=== PATIENT | female | born 1975 | race Caucasian/White ===

== ENCOUNTER 2020-01-19 07:47 | Outpatient (CLI) | payer OTHER, SELFPAY ==
--- NOTE | ~2020-01-19 | MM_ITS ---
EXAMINATION: MM screening [facility] BI w antwon HISTORY: Screening mammogram, family history of breast cancer in her sister. TECHNIQUE: Craniocaudal and mediolateral oblique 3-D tomosynthesis images were obtained and synthetic 2-D images were generated. CAD analysis was submitted and interpreted. COMPARISON: 12/25/2018, 07/05/2017, 11/13/2016, 04/19/2016 BREAST PARENCHYMAL COMPOSITION: The breasts are heterogeneously dense, which may obscure small masses . FINDINGS: There are stable changes of excisional biopsy in the left breast. There is no evidence of s uspicious mass, calcification, or architectural distortion to suggest malignancy in either breast. Th ere has been no suspicious interval change. IMPRESSION: 1. No mammographic evidence of malignancy. 2. Recommend routine screening mammography in one year. BI-RADS Category 2: Benign finding(s). Reviewed, dictated and finalized at location A.
== END 2020-01-19 07:48 | disposition home or self-care (01) ==
LOC: ANHIMG 07:49
PROVIDERS: PCP Family Medicine; Visit Provider Internal Medicine
DX: Z12.31 Encounter for screening mammogram for malignant neoplasm of breast (principal)
CPT/HCPCS: 77063; 77067

== ENCOUNTER 2020-10-04 09:03 | Outpatient (CLI) | payer OTHER, SELFPAY ==
--- NOTE | 2020-10-14 20:46 | WPDHOMESLEEP ---
Sleep Study - Home Unattended Date of Study: 10/04/20 Ordering Provider: Gunnar Zimmer MD Interpreting Provider: Nanette Figueroa MD Home Sleep Study Type: Watch PAT Height: 1.57 m Weight: 58.967 kg Body Mass Index: 23.8 Neck Circumference (inches): 13.25 Little Neck: 11 Reason for Sleep Study waking during the night, difficulty getting back to sleep, Sleep History Kaykay Rosado is a 45 year old female with problems waking up during the night. She avoids looking at the clock so she does not focus on the time. If her is snoring, it is often difficult for her to return to sleep. When this happens, she moves to the couch but then has pain in her hip which keeps her awake. She rolls around trying to get comfortable. This has worsened over the last few years. She has tried melatonin and valerian root without success. She has used a sleep spray on her throat which has not helped. Her sleep quality varies based on the amount of stress she has at work. Some weeks are better than others. She occasionally snores and occasionally it is loud enough that others complain about it. She does not awaken at night with heartburn, belching or coughing. She rarely awakens from sleep feeling short of breath. She occasionally has trouble sleeping with a cold. She does not wake up gasping for breath at night and does not have breathing problems at night observed by others. She occasionally sweats excessively at night. She rarely notices her heart pounding or beating irregularly at night. She occasionally falls asleep during the day, never involuntarily, and never while driving. She does not have loss of muscle tone with strong emotion. 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 She does not have paralysis on waking or falling asleep. She occasionally has vivid dreamlike scenes upon awakening or falling asleep. She does not feel afraid to go to sleep. She rarely has nightmares. She occasionally remembers her dreams. She frequently has racing thoughts. She occasionally feels sad, depressed or anxious. She occasionally has muscular tension and occasionally notices parts of her body jerking. She rarely kicks at night. She occasionally has crawling and aching feelings in her legs. She rarely has any kind of leg pain at night. She occasionally has morning jaw pain. She constantly grinds her teeth during sleep. She frequently is bothered by pain during the day. She rarely is awakened by pain at night. She occasionally wakes up feeling stiff the morning with sore or achy muscles. She constantly wakes up with pain in the neck and spine. She has occasional morning headaches, fatigue, memory problems, concentration difficulties and poor appetite. She has a difficult time making decisions. Normal bedtime is between 10:30 and 11:00 p.m. falling asleep within 30 minutes, typically waking twice at night. Sometimes, she is able to return to sleep in a few minutes. Sometimes, she moves to the couch if her is snoring. She wakes at 5:20 a.m. if she works at 7 am, or she may wake at 7-8:00 a.m. is she works at 10:00 a.m. On the weekends, she stays awake until 11:00 - 11:30, and wakes up as late as 7:00 a.m. or 8:00 a.m.. She works split shifts, sometimes 7:00 a.m. to 5:30 p.m. or 10:00 a.m. until 8:00 p.m.. She does not generally take naps and less she is off work. A short nap is not refreshing. She is usually drowsy in the morning for 1 hour or longer. She feels better in the early afternoon compared other times of day. Habits: she quit tobacco 16 months ago. Caffeine 3-4 servings a day. No alcohol or recreational drugs. [facility] Past Medical History Medical History Acute non-recurrent maxillary sinusitis Chronic depression Encounter for wellness examination in adult Hypersomnia Family History Family Hi
[2020-10-14 20:48] VITALS: BMI 23.8
== END 2020-10-04 09:04 | disposition home or self-care (01) ==
LOC: ANHCSM 09:03
PROVIDERS: PCP Family Medicine; Visit Provider Family Medicine
DX: G47.10 Hypersomnia, unspecified (principal)
CPT/HCPCS: 95800

== ENCOUNTER 2021-01-24 09:54 | Outpatient (CLI) | payer OTHER, SELFPAY ==
--- NOTE | ~2021-01-24 | MM_ITS ---
EXAMINATION: MM screening [facility] BI w antwon HISTORY: Screening TECHNIQUE: Craniocaudal and mediolateral oblique 3-D tomosynthesis images were obtained and synthetic 2-D images were generated. CAD analysis was submitted and interpreted. COMPARISON: Comparison to multiple prior studies sequentially, with oldest reviewed study dated 04/07. BREAST PARENCHYMAL COMPOSITION: The breasts are heterogeneously dense, which may obscure small masses . FINDINGS: There is a developing mass inferiorly in the right breast on MLO view. The left breast is s table without evidence for malignancy. IMPRESSION: 1. Developing right breast mass inferiorly. 2. Additional mammographic views and possible breast ultrasound are recommended. BI-RADS Category 0: Incomplete: Needs additional imaging evaluation. Reviewed, dictated and finalized at location A. IMPRESSION: 1. Developing right breast mass inferiorly. 2. Additional mammographic views and possible breast ultrasound are recommended . BI-RADS Category 0: Incomplete: Needs additional imaging evaluation.
== END 2021-01-24 09:55 | disposition home or self-care (01) ==
LOC: ANHIMG 09:59
PROVIDERS: PCP Family Medicine; Visit Provider Internal Medicine
DX: Z12.31 Encounter for screening mammogram for malignant neoplasm of breast (principal); R92.8 Other abnormal and inconclusive findings on diagnostic imaging of breast
CPT/HCPCS: 77063; 77067

== ENCOUNTER 2022-12-24 08:00 | Outpatient (NON) | payer OTHER, SELFPAY | END 2022-12-24 08:01 | disposition home or self-care (01) | LOC: ANHLAB 12-25 10:38 | PROVIDERS: PCP Family Medicine; Visit Provider Internal Medicine Gastroenterology | DX: Z12.11 Encounter for screening for malignant neoplasm of colon (principal); K63.5 Polyp of colon | CPT/HCPCS: 88305 ==

== ENCOUNTER 2022-12-24 08:23 | Day surgery (SDC) | payer OTHER, SELFPAY ==
[2022-11-01 11:46] VITALS: BMI 22.1
[2022-12-07 14:07] VITALS: BMI 22.6
--- NOTE | 2022-12-24 07:00 | WPDANESEPPF ---
Anes - Initial Pre Proc Eval Procedure: Operation Date: 12/24/22 10:00 Proposed Procedures p Screening Colonoscopy - Nelson Pinto MD Date/Time: 12/24/22 07:00 Surgeon: Nelson Pinto MD Pre Op Diagnosis: Neoplasm Screening Patient Data Age: 47 Gender: F Height: 1.57 m Weight: 56 kg Allergies Allergy/AdvReac Type Severity Reaction Status Date / Time Sulfa (Sulfonamide Allergy Unknown Urticaria Verified 12/24/22 08:41 Antibiotics) Penicillins AdvReac Unknown Abdominal Verified 12/24/22 08:41 Pain Home Medications Medication Instructions Recorded Confirmed Type cholecalciferol (vitamin D3) 25 2,000 unit PO DAILY 02/09/20 12/24/22 History mcg (1,000 unit) capsule albuterol sulfate 90 mcg/actuation 2 inh inhalation Q4H PRN shortness 02/13/22 12/24/22 Rx aerosol inhaler (ProAir HFA) of breath or wheezing #8.5 grams fluticasone propionate 50 1 spray intranasal BID #16 grams 02/13/22 12/24/22 Rx mcg/actuation nasal spray,suspension (Flonase Allergy Relief) montelukast 10 mg tablet 10 mg PO DAILY #30 tabs 02/13/22 12/24/22 Rx multivit with 1 tablet PO DAILY 08/28/22 12/24/22 History gbgeayyj-rbwg-JD-lutein 8 mg iron-400 mcg-300 mcg tablet (Centrum Silver Women) Patient hx anesthesia problems: none Family hx anesthesia problems: none Results Review: All pre-operative results and documents have been reviewed as part of the pre-operative evaluation. [facility] Past Medical History Medical History (Updated 08/28/22 @ 09:35 by Gunnar Zimmer MD) Acute non-recurrent maxillary sinusitis BMI 21.0-21.9, adult BMI 22.0-22.9, adult BMI 23.0-23.9, adult BMI 24.0-24.9, adult Breast cancer screening by mammogram Chronic depression Colon cancer screening Encounter for wellness examination in adult Herpes zoster (~05/20/22) right L3 dermatome Hypersomnia Normal sleep study 10/04/2020 Mild intermittent asthma in adult without complication Weight loss, unintentional (~02/13/22) the patient lost 10 lb between visits Family History Family History Mother Acute myocardial infarction, Onset Age: 51 Father Family history of lung cancer Family history of emphysema Family history of congestive heart failure, Onset Age: 69 Sibling Family history of malignant neoplasm of breast in first degree relative Social History Social History (Updated 08/28/22 @ 09:12 by Carolina Cabello MA) Smoking packs per day: 2 Smoking cigarettes per day: 40.0 Years smoked: 20 Smoking pack-years: 40.00 Smoking status: Heavy tobacco smoker Smoking end date: 07/08/01 Alcohol intake: unknown Substance use: never Substance use type: does not use Lack of Transportation: No Lack of Food: Never True Current Housing: I Have Housing Concerned About Future Housing: No Difficulty Paying Gas/Electric Bills: No Difficulty Paying for Meds: No Currently Unemployed: No Education: High School Diploma/GED Difficulty w/ Childcare or Family Care: No Living arrangements: with family Spiritual care concerns: No Anes - Eval Final PreProcedure Day of Procedure 12/24/22 07:00 Patient weight: normal Heart: regular rate and rhythm Lungs: clear to auscultation and normal air movement Airway: Mallampati scale class II Neurological: alert and oriented Last oral intake: >/= 8 hours ASA classification: II Emergent: no Anesthetic plan: proceed Anesthesia type and monitoring: general GIVS and standard monitoring Results Review: All pre-operative results and documents have been reviewed as part of the pre-operative evaluation. Informed Consent: The patient's anesthetic plan and its attendant risks and benefits were discussed with the patient/family/POA. Questions were solicited and answers provided to the satisfaction of the patient/family/POA.
[2022-12-24 08:49] VITALS: BP 106/76; PULSE 55; RESP 14; TEMP 37; O2SAT 99
[2022-12-24] MEDS: LACTATED RINGERS 1,000 ML 150 ML IV CONT (09:05)
--- NOTE | 2022-12-24 09:42 | PM.HPGS ---
History of Present Illness History of Present Illness Consent: Risks, benefits, and alternatives have been discussed and questions answered. Patient agrees to proceed with procedure. Chief complaint: Neoplasm Screening Narrative: Kaykay Rosado is a 47 year old female here for first screening colonoscopy Review of Systems Constitutional: Constitutional: Denies headache(s) and Denies weakness Eyes: Eyes: Denies blurry vision ENT: Reports Normal hearing present, Denies headache(s) and Denies neck pain Cardiovascular: Cardiovascular: Denies chest pain and Denies dyspnea Respiratory: Respiratory: Denies dyspnea Gastrointestinal: Gastrointestinal: Reports no additional gastrointestinal complaints Genitourinary: Genitourinary: Denies dysuria Musculoskeletal: Musculoskeletal: Denies neck pain Integumentary/Breasts: Skin/Breast: Denies dry skin Neurologic: Reports Normal hearing present, Denies headache(s) and Denies weakness Psychiatric: Psychiatric: Denies anxiety Endocrine: Endocrine: Denies change in body appearance Hematologic/Lymphatic: Hematologic/Lymphatic: Denies easy bleeding Allergic/Immunologic: Allergic/Immunologic: Denies urticaria PMFSH Past Medical History Medical History (Updated 08/28/22 @ 09:35 by Gunnar Zimmer MD) Acute non-recurrent maxillary sinusitis BMI 21.0-21.9, adult BMI 22.0-22.9, adult BMI 23.0-23.9, adult BMI 24.0-24.9, adult Breast cancer screening by mammogram Chronic depression Colon cancer screening Encounter for wellness examination in adult Herpes zoster (~05/20/22) right L3 dermatome Hypersomnia Normal sleep study 10/04/2020 Mild intermittent asthma in adult without complication Weight loss, unintentional (~02/13/22) the patient lost 10 lb between visits Family History Family History Mother Acute myocardial infarction, Onset Age: 51 Father Family history of lung cancer Family history of emphysema Family history of congestive heart failure, Onset Age: 69 Sibling Family history of malignant neoplasm of breast in first degree relative Social History Social History (Updated 08/28/22 @ 09:12 by Carolina Cabello MA) Smoking packs per day: 2 Smoking cigarettes per day: 40.0 Years smoked: 20 Smoking pack-years: 40.00 Smoking status: Heavy tobacco smoker Smoking end date: 07/08/01 Alcohol intake: unknown Substance use: never Substance use type: does not use Lack of Transportation: No Lack of Food: Never True Current Housing: I Have Housing Concerned About Future Housing: No Difficulty Paying Gas/Electric Bills: No Difficulty Paying for Meds: No Currently Unemployed: No Education: High School Diploma/GED Difficulty w/ Childcare or Family Care: No Living arrangements: with family Spiritual care concerns: No Meds Home Medications and Allergies Home Medications Medication Instructions Recorded Confirmed Type cholecalciferol (vitamin D3) 25 2,000 unit PO DAILY 02/09/20 12/24/22 History mcg (1,000 unit) capsule albuterol sulfate 90 mcg/actuation 2 inh inhalation Q4H PRN shortness 02/13/22 12/24/22 Rx aerosol inhaler (ProAir HFA) of breath or wheezing #8.5 grams fluticasone propionate 50 1 spray intranasal BID #16 grams 02/13/22 12/24/22 Rx mcg/actuation nasal spray,suspension (Flonase Allergy Relief) montelukast 10 mg tablet 10 mg PO DAILY #30 tabs 02/13/22 12/24/22 Rx multivit with 1 tablet PO DAILY 08/28/22 12/24/22 History dpwnctnv-oxsf-EZ-lutein 8 mg iron-400 mcg-300 mcg tablet (Centrum Silver Women) Allergies Allergy/AdvReac Type Severity Reaction Status Date / Time Sulfa (Sulfonamide Allergy Unknown Urticaria Verified 12/24/22 08:41 Antibiotics) Penicillins AdvReac Unknown Abdominal Verified 12/24/22 08:41 Pain Vital Signs Vital Signs - 24 hr 12/24/22 08:49 Temper
[2022-12-24 09:59] VITALS: BP 112/90; PULSE 61; RESP 18; O2SAT 100
[2022-12-24 10:09] VITALS: BP 111/67; PULSE 55; RESP 17; O2SAT 100
[2022-12-24 10:19] VITALS: BP 109/72; PULSE 49; RESP 18; O2SAT 100
== END 2022-12-24 10:40 | disposition home or self-care (01) ==
PROVIDERS: PCP Family Medicine; Visit Provider Internal Medicine Gastroenterology
PROC: 0DJD8ZZ Inspection of Lower Intestinal Tract, Via Natural or Artificial Opening Endoscopic (ICD-10-PCS; CPT 45378; principal; 2022-12-24 10:00)
DX: Z12.11 Encounter for screening for malignant neoplasm of colon (principal)
CPT/HCPCS: 45385

== ENCOUNTER 2024-05-18 12:45 | Outpatient (CLI) | payer OTHER, SELFPAY ==
--- NOTE | 2024-05-18 12:52 | ECG_ITS ---
Test Date: 2024-05-18 13:02:09 Measurements Intervals [place] Rate: 50 P: 66 HI: 179 QRS: 76 QRSD: 95 T: 69 QT: 421 QTc: 386 Interpretive Statements SINUS BRADYCARDIA CANNOT R/O SEPTAL INFARCT, AGE INDETERMINATE BASELINE ARTIFACT- I, III, AVL ABNORMAL ECG No previous ECG available for comparison Electronically Signed On 05-18-2024 13:10:41 LOG GETTER by Leonardo García D.O.
== END 2024-05-18 12:46 | disposition home or self-care (01) ==
PROVIDERS: PCP Nurse Practitioner Family; Visit Provider Nurse Practitioner Family
DX: R94.31 Abnormal electrocardiogram [ECG] [EKG] (principal); R07.9 Chest pain, unspecified
CPT/HCPCS: 93005

== ENCOUNTER 2024-06-03 08:46 | Outpatient (CLI) | payer OTHER, SELFPAY ==
--- NOTE | 2024-06-03 08:51 | EST_ITS ---
Patient Info Name: Kaykay Rosado Age: 48 years : 1975 Gender: Female Ht: 62 in Wt: 116 lbs BSA: 1.52 m2 HR: 57 bpm BP: 107 / 67 mmHg Exam Date: 06/03/2024 8:58 AM Exam Location: Echo Lab Patient Status: Outpatient Admit Date: 06/03/2024 Staff Ordering Physician: Carolyn Smith NP Attending Provider: Carolyn Smith NP Exercise Technologist: Yareli Jefferson [facility] Exercise Physician: Leonardo García DO Exam Type: CA stress test treadmill Study Info A treadmill exercise stress test was performed. Summary 1. 1. Negative Grady exercise stress test for ischemic ST changes by ECG criteria. 2. 2. Good functional capacity, achieving 10 METs of workload. 3. 3. Appropriate HR response to exercise. 4. 4. Appropriate HR recovery at 1 minute post exercise. 5. 5. No imaging with stress testing. 6. 6. Patient informed of the above results. Protocol: [place]ady Stress ECG Details Stage: REST Duration (min): 0 min : 57 sec Speed (mph): 0.0 Grade (%): 0 HR (bpm): 56 SBP (mmHg): 107 DBP (mmHg): 67 METS: --- Stage: REST Duration (min): 3 min : 49 sec Speed (mph): 0.0 Grade (%): 0 HR (bpm): 58 SBP (mmHg): 107 DBP (mmHg): 67 METS: --- Stage: STAGE 1 Duration (min): 1 min : 0 sec Speed (mph): 1.7 Grade (%): 10 HR (bpm): 107 SBP (mmHg): 107 DBP (mmHg): 67 METS: --- Stage: STAGE 1 Duration (min): 2 min : 0 sec Speed (mph): 1.7 Grade (%): 10 HR (bpm): 126 SBP (mmHg): 107 DBP (mmHg): 67 METS: --- Stage: STAGE 1 Duration (min): 3 min : 0 sec Speed (mph): 1.7 Grade (%): 10 HR (bpm): 118 SBP (mmHg): 156 DBP (mmHg): 87 METS: --- Stage: STAGE 2 Duration (min): 1 min : 0 sec Speed (mph): 2.5 Grade (%): 12 HR (bpm): 128 SBP (mmHg): 156 DBP (mmHg): 87 METS: --- Stage: STAGE 2 Duration (min): 2 min : 0 sec Speed (mph): 2.5 Grade (%): 12 HR (bpm): 134 SBP (mmHg): 162 DBP (mmHg): 85 METS: --- Stage: STAGE 2 Duration (min): 3 min : 0 sec Speed (mph): 2.5 Grade (%): 12 HR (bpm): 141 SBP (mmHg): 162 DBP (mmHg): 85 METS: --- Stage: STAGE 3 Duration (min): 1 min : 0 sec Speed (mph): 3.4 Grade (%): 14 HR (bpm): 151 SBP (mmHg): 164 DBP (mmHg): 84 METS: --- Stage: STAGE 3 Duration (min): 2 min : 0 sec Speed (mph): 3.4 Grade (%): 14 HR (bpm): 157 SBP (mmHg): 164 DBP (mmHg): 84 METS: --- Stage: STAGE 3 Duration (min): 2 min : 0 sec Speed (mph): 3.4 Grade (%): 14 HR (bpm): 157 SBP (mmHg): 164 DBP (mmHg): 84 METS: --- Stage: RECOVERY Duration (min): 0 min : 59 sec Speed (mph): 0.0 Grade (%): 0 HR (bpm): 124 SBP (mmHg): 156 DBP (mmHg): 85 METS: --- Stage: RECOVERY Duration (min): 1 min : 59 sec Speed (mph): 0.0 Grade (%): 0 HR (bpm): 81 SBP (mmHg): 156 DBP (mmHg): 85 METS: --- Stage: RECOVERY Duration (min): 2 min : 59 sec Speed (mph): 0.0 Grade (%): 0 HR (bpm): 80 SBP (mmHg): 128 DBP (mmHg): 70 METS: --- Stage: RECOVERY Duration (min): 3 min : 4 sec Speed (mph): 0.0 Grade (%): 0 HR (bpm): 78 SBP (mmHg): 128 DBP (mmHg): 70 METS: --- Rest HR: 58 bpm Peak HR: 157 bpm Rest Sys BP: 107 mmHg Peak Sys BP: 164 mmHg Max Pred HR: 171 bpm % Max Pred HR: 92 % Target HR: 145 bpm Max RPP: 25,748 bpm*mmHg Yan Score: 0 Termination Reason: Reached target heart rate or workload Cardiac Symptoms: Shortness of breath Max ST Seg Deviation: -1.70 mm Total Time: 8 min : 0 sec Rest Chang BP: 67 mmHg Peak Chang BP: 84 mmHg Angina Score: None Total METS: 10.3 Resting ECG Sinus bradycardia. Stress ECG No ST changes. Arrhythmias None. Report Signatures
== END 2024-06-03 08:47 | disposition home or self-care (01) ==
LOC: ANHCARD 08:47
PROVIDERS: PCP Nurse Practitioner Family; Visit Provider Nurse Practitioner Family
DX: R07.9 Chest pain, unspecified (principal); R94.31 Abnormal electrocardiogram [ECG] [EKG]
CPT/HCPCS: 93017

== ENCOUNTER → 2024-06-15 10:02 | Outpatient (CLI) | payer OTHER, SELFPAY ==
--- NOTE | ~2024-06-15 | XR_ITS ---
XR finger 1st RT min 2V Ordering provider: Carolyn Smith NP History: . R22.30 - Localized swelling, mass and lump, unspecified u... . Comparison: None. FINDINGS: BONES: No acute fracture or dislocation. JOINT SPACES: Normal. SOFT TISSUES: Minimal soft tissue swelling over the metacarpophalangeal l joint. IMPRESSION: No acute osseous abnormality. Reviewed, dictated and finalized at location A. TER POCKET SEWER
== END ==
PROVIDERS: PCP Nurse Practitioner Family; Visit Provider Nurse Practitioner Family
DX: R22.30 Localized swelling, mass and lump, unspecified upper limb (principal)
CPT/HCPCS: 73140